=== PATIENT | male | born 1950 | race Caucasian/White ===

== ENCOUNTER 2019-05-18 07:51 | Outpatient (CLI) | payer MEDICARE, MEDICAID, SELFPAY ==
--- NOTE | ~2019-05-18 | CT_ITS ---
EXAMINATION: CT chest abdomen pelvis w con DATE: 05/18/2019 09:08 INDICATION: Malignant neoplasm of ascending colon; restaging TECHNIQUE: Computed tomography (CT) of the chest, abdomen, and pelvis was performed with 100 cc Omnip aque 350 intravenous contrast. Automated exposure control and iterative reconstruction technique were employed. Exam dose: 1927.18 mGy-cm total exam DLP. COMPARISON: 12/20/2017 CT abdomen pelvis FINDINGS: CHEST CT: Normal size and homogeneous enhancement of the thyroid gland. No hilar or mediastinal mass lesion or lymphadenopathy. Thoracic aortic and extensive coronary artery calcifications. Status post sternotomy/CABG. Heart size is within normal limits. Small pneumatoceles are noted in the apices. There is left upper lobe scarring. No pulmonary infilt rate or consolidation. Small sliding hiatal hernia. ABDOMEN/PELVIS CT: Status post cholecystectomy. Status post right colectomy. No bowel obstruction or free air. No hepatic, splenic, pancreatic, and adrenal or renal space-occupying mass lesion. There is atherosclerotic calcification of the abdominal aorta, celiac, mesenteric, renal, iliac and f emoral arteries but no abdominal aortic aneurysm. No intraperitoneal or retroperitoneal or pelvic mas s lesion or adenopathy or ascites. The urinary bladder is unremarkable. There is moderate prostate enlargement and some prostate calcifi cations. Diffuse idiopathic skeletal hyperostosis of the thoracic spine. There is chronic mild to moderate anterior wedge compression fracture deformity of L1. Degenerative spurring of the lumbar spine. Bilateral fat containing inguinal hernias. IMPRESSION: Status post right colectomy for history of ascending colon carcinoma; no metastatic dise ase is evident Status post cholecystectomy Small sliding hiatal hernia Reviewed, dictated and finalized at [facility]. Reviewed, dictated and finalized at [facility]. IMPRESSION: Status post right colectomy for history of ascending colon carcino ma; no metastatic disease is evident Status post cholecystectomy Small sliding hiatal hernia
[2019-05-18 08:54] LABS: Estimated Glomerular Filt Rate 60
[2019-05-18 09:56] LABS: Basophils Percent Auto 0.5 % (0.2-1.2); Eosinophils Absolute Auto 0.2 K/mm3 (0-0.3); Eosinophils Percent Auto 1.7 % (0-4.4); Hematocrit 45.2 % (42.0-52.0); Immature Granulocyte Absolute 0.03 K/mm3 (0.00-0.031); Immature Granulocyte Percent A 0.3 % (0-0.5); Lymphocytes Absolute Auto 1.45 K/mm3 (0.9-3.2); Lymphocytes Percent Auto 16.9 % (18.3-44.2); Mean Corpuscular Hemoglobin 26.8 pg (26-34); Mean Corpuscular Volume 86.6 fl (80-100); Mean Platelet Volume 9.9 fl (7.4-10.4); Monocytes Absolute Auto 0.7 K/mm3 (0.1-0.6); Monocytes Percent Auto 8.1 % (2.6-8.5); Neutrophils Absolute Auto 6.2 K/mm3 (1.3-6.7); Neutrophils Percent Auto 72.5 % (45.5-73.1); Platelet Count Result 218 k/mm3 (150-375); Red Blood Count 5.22 M/mm3 (4.6-6.20); Red Cell Distribution Width 16.7 % (11.5-14.5); White Blood Count 8.6 K/mm3 (4.5-10.0)
[2019-05-18 09:58] LABS: Add Urine Microscopic? NO; Appearance Urine Clear (Clear); Bilirubin Urine Negative (Negative); Blood Urine Negative (Negative); Color Urine Straw (Yellow); Glucose Urine UA Negative (Negative); Ketones Urine Negative (Negative); Leukocyte Esterase Ur Negative LEU/UL (Negative); Nitrate Urine Negative (Negative); Protein Urine Negative (Negative); Urobilinogen Urine Negative mg/dL (<2.0)
[2019-05-18 10:02] LABS: Specific Grav Ur 1.048 (1.001-1.035)
[2019-05-18 10:07] LABS: Hemoglobin A1C 5.8 % (<5.7)
[2019-05-18 10:08] LABS: Alanine Aminotransferase 19 U/L (4-50); Albumin Level 4.1 g/dL (3.5-5.1); Alkaline Phosphatase 59 U/L (38-126); Aspartate Amino Transferase 34 U/L (17-59); Bilirubin,Total 0.4 mg/dL (0.2-1.3); Blood Urea Nitrogen 24 mg/dL (9-20); Calcium 9.1 mg/dL (8.4-10.2); Carbon Dioxide 31 mmol/L (22-30); Chloride 101 mmol/L (98-107); Estimated Glomerular Filt Rate 60; Glucose 108 mg/dL (75-110); Sodium 137 mmol/L (137-145); Uric Acid 8.9 mg/dL (3.5-8.5)
[2019-05-18 10:20] LABS: Parathyroid Intact 33.7 pg/mL (7.5-53.5)
[2019-05-18 10:24] LABS: Erythrocyte Sedimentation Rate 10 mm/hr (0-20)
[2019-05-18 10:41] LABS: Vitamin D 25 Hydroxy 40.7 ng/mL
[2019-05-18 10:44] LABS: Carcinoembryonic Antigen 0.4 ng/mL (0.0-3.0)
== END 2019-05-18 07:52 | disposition home or self-care (01) ==
PROVIDERS: Family Provider Specialist; PCP Internal Medicine; Visit Provider Internal Medicine Hematology & Oncology
DX: C18.2 Malignant neoplasm of ascending colon (principal); Z90.49 Acquired absence of other specified parts of digestive tract; K44.9 Diaphragmatic hernia without obstruction or gangrene; N18.3 Chronic kidney disease, stage 3 (moderate); I50.9 Heart failure, unspecified; E11.65 Type 2 diabetes mellitus with hyperglycemia; E78.5 Hyperlipidemia, unspecified; E55.9 Vitamin D deficiency, unspecified; N39.0 Urinary tract infection, site not specified
CPT/HCPCS: 36415; 71260; 74177; 80053; 80069; 81003; 82248; 82306; 82378; 83036; 83970; 84550; 85025; 85652; Q9967

== ENCOUNTER 2019-09-22 08:22 | Outpatient (CLI) | payer MEDICARE, MEDICAID, SELFPAY ==
[2019-09-22 09:03] LABS: Basophils Percent Auto 0.4 % (0.2-1.2); Eosinophils Absolute Auto 0.3 K/mm3 (0-0.3); Eosinophils Percent Auto 3.1 % (0-4.4); Hematocrit 48.4 % (42.0-52.0); Hemoglobin 15.2 g/dL (14.0-18.0); Immature Granulocyte Absolute 0.05 K/mm3 (0.00-0.031); Immature Granulocyte Percent A 0.6 % (0-0.5); Lymphocytes Absolute Auto 1.82 K/mm3 (0.9-3.2); Lymphocytes Percent Auto 22.9 % (18.3-44.2); Mean Corpuscular HGB Conc 31.4 g/dl (32-36); Mean Corpuscular Hemoglobin 27.7 pg (26-34); Mean Corpuscular Volume 88.2 fl (80-100); Mean Platelet Volume 9.2 fl (7.4-10.4); Monocytes Absolute Auto 0.7 K/mm3 (0.1-0.6); Monocytes Percent Auto 8.2 % (2.6-8.5); Neutrophils Absolute Auto 5.2 K/mm3 (1.3-6.7); Neutrophils Percent Auto 64.8 % (45.5-73.1); Platelet Count Result 212 k/mm3 (150-375); Red Blood Count 5.49 M/mm3 (4.6-6.20)
[2019-09-22 12:38] LABS: Alanine Aminotransferase 26 U/L (4-50); Albumin Level 4.1 g/dL (3.5-5.1); Alkaline Phosphatase 60 U/L (38-126); Anion Gap 13.2 mmol/L (7-16); Aspartate Amino Transferase 40 U/L (17-59); Bilirubin,Total 0.2 mg/dL (0.2-1.3); Blood Urea Nitrogen 25 mg/dL (9-20); Calcium 9.2 mg/dL (8.4-10.2); Carbon Dioxide 28 mmol/L (22-30); Chloride 103 mmol/L (98-107); Estimated Glomerular Filt Rate > 60; Glucose 104 mg/dL (75-110); Potassium 4.2 mmol/L (3.4-5.0); Sodium 140 mmol/L (137-145)
[2019-09-22 12:43] LABS: Erythrocyte Sedimentation Rate 16 mm/hr (0-20)
[2019-09-22 12:44] LABS: Hemoglobin A1C 6.8 % (<5.7)
[2019-09-22 12:50] LABS: Vitamin D 25 Hydroxy 40.4 ng/mL
[2019-09-22 13:04] LABS: Carcinoembryonic Antigen 1.1 ng/mL (0.0-3.0)
[2019-09-22 13:42] LABS: Parathyroid Intact 28.1 pg/mL (7.5-53.5)
== END 2019-09-22 08:23 | disposition home or self-care (01) ==
PROVIDERS: PCP Internal Medicine; Visit Provider Internal Medicine Hematology & Oncology
DX: C18.2 Malignant neoplasm of ascending colon (principal); I12.9 Hypertensive chronic kidney disease with stage 1 through stage 4 chronic kidney disease, or unspecified chronic kidney disease; N18.3 Chronic kidney disease, stage 3 (moderate); E11.65 Type 2 diabetes mellitus with hyperglycemia; E55.9 Vitamin D deficiency, unspecified; R60.9 Edema, unspecified; E78.5 Hyperlipidemia, unspecified; N39.0 Urinary tract infection, site not specified
CPT/HCPCS: 36415; 80053; 82306; 82378; 83036; 83970; 84550; 85025; 85652

== ENCOUNTER 2019-10-24 08:58 | Outpatient (CLI) | payer MEDICARE, MEDICAID, SELFPAY ==
[2019-10-24 11:40] LABS: Add Urine Microscopic? NO; Appearance Urine Clear (Clear); Bilirubin Urine Negative (Negative); Blood Urine Negative (Negative); Color Urine Straw (Yellow); Glucose Urine UA Negative (Negative); Ketones Urine Negative (Negative); Leukocyte Esterase Ur Negative LEU/UL (Negative); Nitrate Urine Negative (Negative); Protein Urine Negative (Negative); Specific Grav Ur 1.013 (1.001-1.035); Urobilinogen Urine Negative mg/dL (<2.0)
[2019-10-24 12:35] LABS: Creatinine Urine 89.2 mg/dL
[2019-10-24 12:48] LABS: MALB Creatinine Ratio < 6.7 mg/g (0-30); Microalbumin Urine Random < 6.0 mg/L (0-16.7)
== END 2019-10-24 08:59 | disposition home or self-care (01) ==
LOC: ANHLAB 09:03
PROVIDERS: PCP Internal Medicine; Visit Provider Internal Medicine Hematology & Oncology
DX: I12.9 Hypertensive chronic kidney disease with stage 1 through stage 4 chronic kidney disease, or unspecified chronic kidney disease (principal); N18.3 Chronic kidney disease, stage 3 (moderate); E11.65 Type 2 diabetes mellitus with hyperglycemia; E78.5 Hyperlipidemia, unspecified; E55.9 Vitamin D deficiency, unspecified; N39.0 Urinary tract infection, site not specified; R60.9 Edema, unspecified
CPT/HCPCS: 81003; 82043

== ENCOUNTER 2020-03-08 10:09 | Outpatient (CLI) | payer MEDICARE, MEDICAID, SELFPAY ==
[2020-03-08 10:31] LABS: Basophils Percent Auto 0.4 % (0.2-1.2); Eosinophils Absolute Auto 0.2 K/mm3 (0-0.3); Eosinophils Percent Auto 2.5 % (0-4.4); Hematocrit 44.4 % (42.0-52.0); Hemoglobin 14.3 g/dL (14.0-18.0); Immature Granulocyte Absolute 0.09 K/mm3 (0.00-0.031); Immature Granulocyte Percent A 1.1 % (0-0.5); Lymphocytes Absolute Auto 1.26 K/mm3 (0.9-3.2); Lymphocytes Percent Auto 16.1 % (18.3-44.2); Mean Corpuscular HGB Conc 32.2 g/dl (32-36); Mean Corpuscular Hemoglobin 28.8 pg (26-34); Mean Corpuscular Volume 89.3 fl (80-100); Mean Platelet Volume 9.4 fl (7.4-10.4); Monocytes Absolute Auto 0.6 K/mm3 (0.1-0.6); Neutrophils Absolute Auto 5.7 K/mm3 (1.3-6.7); Neutrophils Percent Auto 72.9 % (45.5-73.1); Platelet Count Result 196 k/mm3 (150-375); Red Blood Count 4.97 M/mm3 (4.6-6.20); Red Cell Distribution Width 14.4 % (11.5-14.5); White Blood Count 7.9 K/mm3 (4.5-10.0)
[2020-03-08 12:40] LABS: Alanine Aminotransferase 26 U/L (4-50); Albumin Level 3.9 g/dL (3.5-5.1); Alkaline Phosphatase 63 U/L (38-126); Anion Gap 8 mmol/L (8-16); Aspartate Amino Transferase 42 U/L (17-59); Bilirubin,Total 0.4 mg/dL (0.2-1.3); Blood Urea Nitrogen 18 mg/dL (9-20); Calcium 9.5 mg/dL (8.4-10.2); Carbon Dioxide 30 mmol/L (22-30); Chloride 100 mmol/L (98-107); Estimated Glomerular Filt Rate > 60; Glucose 149 mg/dL (75-110); Potassium 4.2 mmol/L (3.4-5.0); Sodium 138 mmol/L (137-145)
== END 2020-03-08 10:10 | disposition home or self-care (01) ==
LOC: ANHLAB 10:12
PROVIDERS: Family Provider Specialist; PCP Internal Medicine; Visit Provider Internal Medicine Hematology & Oncology
DX: C18.2 Malignant neoplasm of ascending colon (principal)
CPT/HCPCS: 36415; 80053; 82378; 85025